=== PATIENT | male | born 1980 | race Caucasian/White ===

== ENCOUNTER 2020-02-20 09:56 | Day surgery (SDC) | payer MEDICARE ==
--- NOTE | 2020-02-20 08:34 | HP ---
DATE OF SURGERY: 02/20/2020 HISTORY OF PRESENT ILLNESS: The patient is a 39 year old had trouble with foreign body in the left thumb with persistent problems with increased pain when he extends the thumb at this time. He is interested in considering exploration for removal. PAST MEDICAL HISTORY: Seizure disorder in the past. PAST SURGICAL HISTORY: Left and right knee surgery repair in the past. MEDICATIONS: Lamotrigine. ALLERGIES: CHANTIX. ATIVAN. FAMILY HISTORY: Cancer. SOCIAL HISTORY: No smoking or alcohol abuse currently. REVIEW OF SYSTEMS: Fourteen systems reviewed. No chest pain or palpitations. Other systems negative or noncontributory as above and per preadmission questionnaire. PHYSICAL EXAMINATION: GENERAL: No acute distress. HEENT: Sclerae nonicteric. NECK: No JVD. CHEST: Equal excursion, nonlabored breathing. CVS: Regular rate and rhythm. ABDOMEN: Soft. No peritoneal signs. EXTREMITIES: No significant edema. On the left thumb he has got an indurated area in his left thumb because foreign body still embedded in that area causing him pain. No cyanosis. NEURO: Alert, oriented, moving extremities symmetrically. No gross motor deficits noted. PSYCH: Appropriate mood and affect. IMPRESSION: Question of persistent foreign body, symptomatic foreign body left thumb causing increasing aches and pain, causing him increase in symptoms. I feel he would benefit from exploration likely with C-arm fluoroscopy and attempt to remove the foreign body left thumb if possible. Risks and benefits explained in detail including but not limited to bleeding or infection, risk of wound dehiscence, possibility we may not be able to ascertain any of this foreign body to remove or may not be able to completely remove the foreign body or removal of foreign body may not improve his symptoms. He could still have some aches, pains, burning or numbness possibly with or without foreign body removal. He understands as well as general risk of anesthesia, deep venous thrombosis, pulmonary embolism, pneumonia, will proceed with excision of foreign body left thumb as an outpatient.
[~2020-02-20 09:56] MED LIST: Lactated Ringers 1,000 ML IV SCH
[2020-02-20] MEDS ORDERED: Sensorcaine 0.25% 10 ML ONE (09:59)
[2020-02-20] MEDS ORDERED: SUBLIMAZE 100 MCG/2 ML ONE (12:46)
[2020-02-20] MEDS ORDERED: Xylocaine-Mpf 2% 5 Ml Vial ONE (12:46)
[2020-02-20] MEDS ORDERED: Versed 2 MG/2 ML Injection ONE (12:46)
[2020-02-20] MEDS ORDERED: DIPRIVAN 200 MG/20 ML IV ONE (12:46)
[2020-02-20] MEDS ORDERED: KEFZOL 1 GM ONE (13:44)
[2020-02-20] MEDS ORDERED: Lactated Ringers 1,000 ML IV ONE (14:02)
[2020-02-20] MEDS ORDERED: BACIGUENT 30 GM ONE (14:50)
[2020-02-20 15:06] VITALS: O2SAT 96
[2020-02-20 15:07] VITALS: BP 116/80; PULSE 61
--- NOTE | 2020-02-20 15:37 | XRAY ---
Indication: Foreign body removal. Intraoperative fluoroscopy was provided for 2 seconds. Initial single digital spot image demonstrates small curvilinear radiopaque foreign body adjacent to the proximal 1st phalanx. 2nd digital spot image demonstrates successful complete removal. Correlate with intraoperative findings/report.
--- NOTE | 2020-02-21 08:38 | XRAY ---
2 seconds fluoroscopy time in surgery for foreign body removal left thumb.
--- NOTE | 2020-02-21 09:54 | OP ---
SURGERY DATE/TIME: 02/20/2020 1707 PREOPERATIVE DIAGNOSIS: Left thumb pain and question of retained foreign body. POSTOPERATIVE DIAGNOSIS: Retained moderate sized fragment of fish hook left thumb. PROCEDURES: 1) Exploration of left thumb with C-arm fluoroscopy. 2) Removal of foreign body. SURGEON: Dr. Maninder Ruiz. CRATER AND PACKER: Denia Rai, Medical Student III. ANESTHESIA: General. ESTIMATED BLOOD LOSS: Minimal. INDICATIONS: As noted above. Risks and benefits explained in detail and not limited to and consent obtained. DESCRIPTION OF PROCEDURE AND FINDINGS: The patient is taken to the operating room. General anesthesia induced. The thumb prepped and draped in usual sterile fashion. After official time out and no disagreement with planned procedure, the precursory C-arm film showed metallic fragments seen like part of a fish hook. A longitudinal incision made directly over the indurated area and dissection carried down. This was extending a little more cephalad and deep than expected but was able to get the top portion of the hook finally the tissue gently and directly right at the fish hook fragment. It was grasped and pulled free. Appeared to be pulled free intact and passed off. Copious amount of irrigation irrigating until clear. The follow up C-arm film showed no residual foreign body in the thumb. Irrigation accomplished and the then closed with some 5-0 Prolene. 0.25% Marcaine local injected along the area. The patient tolerated the procedure well. There were no immediate complications. Findings discussed with the family out in the waiting area.
== END 2020-02-20 15:20 | disposition home or self-care (01) ==
LOC: SDC 09:56
PROVIDERS: ATTEND Surgery
DX: M79.5 Residual foreign body in soft tissue (principal)
CPT/HCPCS: 73140; 76000; J0690; J2250; J2704; J3010; A9270-GY